=== PATIENT | female | born 1960 | race African-American/Black ===

== ENCOUNTER 2023-08-04 06:45 | Emergency (ER) | payer SELFPAY ==
[~2023-08-04] VITALS: Ht 175.3 cm; Wt 90.0 kg
[2023-08-04 06:48] VITALS: O2SAT 99
[2023-08-04] MEDS: ACETAMINOPHEN 325MG TABLET PO ONE (07:00)
[2023-08-04] MEDS: ACETAMINOPHEN 325MG TABLET PO SCH (08:41)
[2023-08-04] MEDS: TETANUS, DIPHTHERIA, PERTUSSIS VAC/PF 0.5ML (>10YR OLD) IM ONE (08:51)
[2023-08-04 08:54] VITALS: TEMP 98.1
[2023-08-04 10:33] VITALS: BP 151/63; PULSE 89; RESP 16
== END 2023-08-04 10:35 | disposition home or self-care (01) ==
LOC: ER 06:45
DX: S01.112A Laceration without foreign body of left eyelid and periocular area, initial encounter (principal); S63.391A Traumatic rupture of other ligament of right wrist, initial encounter; I10 Essential (primary) hypertension; W18.39XA Other fall on same level, initial encounter; Y93.89 Activity, other specified; Y92.89 Other specified places as the place of occurrence of the external cause; Y99.8 Other external cause status
CPT/HCPCS: 73110; 73130; 73562; 70450; 72125; 90715; 29125; 90471; 99285; Z7610